=== PATIENT | female | born 1995 | race Caucasian/White ===

== ENCOUNTER 2017-12-07 19:08 | Emergency (ER) | payer SELFPAY ==
--- NOTE | 2017-12-07 20:23 | RAD ---
RIGHT KNEE FOUR VIEWS: 12/07/17 HISTORY: 22-year-old female with atraumatic right knee pain for four days. FINDINGS/IMPRESSION: No fracture, dislocation, or other significant acute osseous abnormality. POS: RRE
== END 2017-12-07 20:30 | disposition home or self-care (01) ==
LOC: ERS 19:08
DX: M76.9 Unspecified enthesopathy, lower limb, excluding foot (principal)

== ENCOUNTER 2018-01-24 16:08 | Emergency (ER) | payer SELFPAY ==
[2018-01-24] MEDS ORDERED: Ketorolac Tromethamine 30 MG/ML VIAL ONE (16:58)
--- NOTE | 2018-01-24 17:58 | RAD ---
RIGHT KNEE FOUR VIEWS: 01/24/18 HISTORY: Right knee pain. FINDINGS: Joint spaces are preserved. No cute fracture, dislocation, or fluid distention of the suprapatellar b ursa. IMPRESSION: No acute osseous abnormalities are demonstrated. POS: [id number]
== END 2018-01-24 17:40 | disposition home or self-care (01) ==
LOC: ERS 16:08
DX: M25.561 Pain in right knee (principal)
CPT/HCPCS: 96372; J1885